=== PATIENT | male | born 1940 | race Caucasian/White ===

== ENCOUNTER 2018-08-10 13:15 | Observation (INO) | payer BC, MEDICARE ==
[2018-08-10] MEDS ORDERED: LORazepam 2 MG/ML DISP.SYRIN IV ONE (13:45)
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
[2018-08-10 13:59] LABS: Hematocrit 45.1 % (42.0-52.0); Mean Cell Volume 94.9 fl (78-100); Mean Corpuscular Hemoglobin 31.6 pg (27-31); Mean Corpuscular Hgb Conc 33.3 g/dl (32-36); Neutrophil # 7.1 K/mm3 (1.3-6.0); Neutrophil % 77.5 % (42-75.0); Platelet Count 248 K/mm3 (150-450); Red Blood Count 4.75 M/mm3 (4.7-6.0); Red Cell Distribution Width 13.4 % (11.5-14.0); White Blood Count 9.1 K/mm3 (4.0-10.5)
[2018-08-10 14:09] LABS: Albumin * 3.6 gm/dl (3.4-5.0); Anion Gap 10.1 mmol/L (6.8-13.8); BUN/Creatinine Ratio 13.4 (9.0-21.6); Bilirubin, Total 0.6 mg/dL (0.0-1.1); Ca. Corrected For Albumin 9.5 mg/dL (8.4-10.2); Calcium * 9.5 mg/dL (7.9-10.9); Carbon Dioxide 28.5 mmol/L (24-32.6); Potassium 4.6 mmol/L (3.4-4.6); Total Protein 7.9 gm/dL (6.2-8.2)
[2018-08-10 16:25] LABS: Partial Thrombolplastin Time 24.7 Seconds (24-32)
[2018-08-10] MEDS ORDERED: ACETAMINOPHEN 325 MG TABLET PO ONE (16:41)
[2018-08-10] MEDS ORDERED: ACETAMINOPHEN 500 MG TABLET PO PRN (17:01)
[2018-08-10] MEDS ORDERED: ONDANSETRON HCL/PF 2 MG/ML VIAL IV PRN (17:01)
--- NOTE | 2018-08-10 17:39 | HP ---
Chief Complaint - Chief Complaint Date of Service: 08/10/18 Time of Service: 17:29 History of Present Illness: 78-year-old male with past medical history of hypertension and BPH was brought to the ER due to right flank pain especially with cough sneezing or m ovement of one day duration. Patient endured a fall when he slipped on ice yesterday and fell on his back and hit his head, he denies loss of consciousness and reports being able to get up on his own. After the fall patient went home and thought he was okay but this morning the pain in his right flank worsened and concerned that concerned him enough to come to the ER. Abdominal CT revealed fractures of eighth ninth 10th and 11th ribs on the right side and head CT revealed a subdural hemorrhage with no mass-effect or evidence of active bleeding. Labs are negative for any significant findings. Medical History (Last Updated 08/10/18 @ 13:25 by Dank Callaway RN) GERD (gastroesophageal reflux disease) Social History: Preferred Language Polish Abuse History No History of abuse Psych History No pertinent hx No Social History Section defined Peds Patient Hx - Developmental: No Pertinent Hx Peds Patient Hx - Medical: No Pertinent Hx Peds Patient Hx - Cardiac/Respiratory: No Pertinent Hx Peds Patient Hx - Surgical: No Surgical History Patient History - Cancer: No Hx of Cancer Review Of Systems (GEN) - Review of Systems Generalized/Overall Review: Present: No Symptoms Reported EENTM: Present: No Symptoms Reported Respiratory: Present: No Symptoms Reported Cardiac: Present: No Symptoms Reported Abdominal: Present: No Symptoms Reported Genitourinary: Present: No Symptoms Reported Musculoskeletal: Present: Back Pain, Muscle Pain, Other - Right flank pain Neurological: Present: No Symptoms Reported Skin: Present: No Symptoms Reported Endocrine: Present: No Symptoms Reported Misc: All systems neg except as marked Immunizations: IMMUNIZATION HX Immunizations Up to Date Yes History of Influenza Vaccine Yes Hx Pneumococcal Vaccination Yes Allergies/Adverse Reactions: Allergies Allergy/AdvReac Type Severity Reaction Status Date / Time honey Allergy Verified 08/10/18 13:24 Home Medications: HOME MEDICATIONS Albuterol Sulfate [Proair Hfa] 1 - 2 puff IH Q4H PRN #1 inhaler 10/17/15 [Last Taken Unknown] Aspirin [Aspirin EC] 81 mg PO DAILY 10/17/15 [Last Taken Unknown] Hydrochlorothiazide [Hydrodiuril] 12.5 mg PO DAILY 10/17/15 [Last Taken Unknown] Multivitamin [Poly-Vitamin] 1 each PO DAILY 10/17/15 [Last Taken Unknown] Omeprazole [Prilosec] 40 mg PO DAILY 10/17/15 [Last Taken Unknown] Ramipril 10 mg PO DAILY 10/17/15 [Last Taken Unknown] Tamsulosin HCl [Flomax] 0.4 mg PO DAILY 10/17/15 [Last Taken Unknown] Ondansetron [Zofran Odt] 4 mg PO Q6H PRN #20 tab 11/05/15 [Last Taken Unknown] Exam - Exam Vital Signs: Vital Signs - Last Taken Temp 37.1 C 08/10/18 13:15 Pulse 98 08/10/18 13:15 Resp 14 08/10/18 13:15 BP 167/117 H 08/10/18 13:15 Pulse Ox 95 08/10/18 13:15 Constitutional: Present: Alert, Oriented x3, Cooperative, Well developed, Well nourished, No distress ENT Exam: Present: normal ENT inspection, hearing grossly normal, pharynx normal, TMs normal Eye Exam: bilateral eye: normal inspection, PERRL, EOMI Neck: Present: non-tender, full range of motion, supple, normal inspection, trachea midline Back Exam: Present: vertebral tenderness, other - Right flank tender Breasts: Present: Exam deferred Respiratory: Present: chest non-tender Cardiovascular/Chest: Present: normal peripheral pulses, regular rate, rhythm, no chest tenderness, no edema, no gallop, no JVD, no murmur Peripheral Pulses: carotid (R): 3+, carotid (L): 3+, femoral (R): 3+, femoral (L): 3+, dorsalis-pedis (R): 3+, dorsalis-pedis (L): 3+ Abdomen: Present: Normal bowel sounds, soft, tender /Rectal: Present: Exam deferred Extremity: Present: normal range of motion, non-tender, normal inspection, no pedal edema, no calf tenderness, normal capillary refill, pelvis stable Skin Exam: Present: normal color, warm/dry, no cyanosis Lymphatic: Present: no adenopathy Neurologic: Present: manager balance II-XII nml as tested, normal cerebellar test, no motor/sensory deficits, alert, normal mood/affect, oriented x 3 Appearance: Present: appropriate appearance, appropriate insight, neat, no memory impairment Eye contact: Present: cooperative, good eye contact, normal speech Thoughts: Present: normal thought pattern, no apparent hallucination, auditory hallucinations Diagnostic Studies: Abnormal Lab Results 08/10/18 08/10/18 Range/Units 13:50 13:50 MCH 31.6 H (27-31) pg Immature Gran # (Auto) 0.04 H (0.000-0.0310) K/mm3 Neutrophils % 77.5 H (42-75.0) % Lymphocytes % 12.2 L (20-51) % Neutrophils # 7.1 H (1.3-6.0) K/mm3 Lymphocytes # 1.11 L (1.5-3.5) k/mm3 Creatinine 1.42 H (0.4-1.4) mg/dL Est GFR (Non-Af Amer) 51 L (60-130) mL/min Random Glucose 121 H (70-110) mg/dL Laboratory Results WBC 9.1 K/mm3 (4.0-10.5) 08/10/18 13:50 RBC 4.75 M/mm3 (4.7-6.0) 08/10/18 13:50 Hgb 15.0 gm/dL (13.5-18.0) 08/10/18 13:50 Hct 45.1 % (42.0-52.0) 08/10/18 13:50 MCV 94.9 fl (78-100) 08/10/18 13:50 MCH 31.6 pg (27-31) H 08/10/18 13:50 MCHC 33.3 g/dl (32-36) 08/10/18 13:50 RDW 13.4 % (11.5-14.0) 08/10/18 13:50 Plt Count 248 K/mm3 (150-450) 08/10/18 13:50 MPV 10.0 fl (8-11.3) 08/10/18 13:50 Immature Gran % (Auto) 0.40 % (0.001-0.429) 08/10/18 13:50 Immature Gran # (Auto) 0.04 K/mm3 (0.000-0.0310) H 08/10/18 13:50 Neutrophils % 77.5 % (42-75.0) H 08/10/18 13:50 Lymphocytes % 12.2 % (20-51) L 08/10/18 13:50 Monocytes % 8.3 % (0.0-9) 08/10/18 13:50 Eosinophils % 1.1 % (0.0-3.0) 08/10/18 13:50 Basophils % 0.5 % (0.0-1.0) 08/10/18 13:50 Nucleated RBC % 0.0 k/mm3 (0-1) 08/10/18 13:50 Neutrophils # 7.1 K/mm3 (1.3-6.0) H 08/10/18 13:50 Lymphocytes # 1.11 k/mm3 (1.5-3.5) L 08/10/18 13:50 Monocytes # 0.8 k/mm3 (0.0-1.0) 08/10/18 13:50 Eosinophils # 0.1 k/mm3 (0.0-0.7) 08/10/18 13:50 Absolute Basophils 0.1 k/mm3 (0.0-0.1) 08/10/18 13:50 PT 10.0 Seconds (9.0-11.0) 08/10/18 13:50 INR (Anticoag Therapy) 1.00 INR (0.90-1.10) 08/10/18 13:50 PTT ([place]) 24.7 Seconds (24-32) 08/10/18 13:50 Sodium 137 mmol/L (132-142) 08/10/18 13:50 Plasma Sodium 137 mmol/L (130-142) 08/10/18 13:50 Potassium 4.6 mmol/L (3.4-4.6) 08/10/18 13:50 Chloride 103 mmol/L (97-106) 08/10/18 13:50 Carbon Dioxide 28.5 mmol/L (24-32.6) 08/10/18 13:50 Anion Gap 10.1 mmol/L (6.8-13.8) 08/10/18 13:50 BUN 19 mg/dL (6-23) 08/10/18 13:50 Creatinine 1.42 mg/dL (0.4-1.4) H 08/10/18 13:50 Est GFR (Non-Af Amer) 51 mL/min (60-130) L 08/10/18 13:50 BUN/Creatinine Ratio 13.4 (9.0-21.6) 08/10/18 13:50 Random Glucose 121 mg/dL (70-110) H 08/10/18 13:50 Calcium 9.5 mg/dL (7.9-10.9) 08/10/18 13:50 Calcium Adj for Albumin 9.5 mg/dL (8.4-10.2) 08/10/18 13:50 Total Bilirubin 0.6 mg/dL (0.0-1.1) 08/10/18 13:50 AST 18 U/L (0-48) 08/10/18 13:50 ALT 25 U/L (19-67) 08/10/18 13:50 Alkaline Phosphatase 93 U/L (50-170) 08/10/18 13:50 Total Protein 7.9 gm/dL (6.2-8.2) 08/10/18 13:50 Albumin 3.6 gm/dl (3.4-5.0) 08/10/18 13:50 Assessment/Plan - Narrative Narrative: After evaluating the patient and the medical record decision to admit to o utpatient observation was taken to monitor the patient for any neurological deficits or recurrence of brain bleed. Clinically patient appears to be stable he denies excruciating pain but was administered a mild analgesic. Repeat CT was ordered for tomorrow morning to reevaluate subdural hemorrhage. We will monitor him closely. - Assessment/Plan (1) Ribs, multiple fractures Problem: Acute Qualifiers: Encounter type: initial encounter (2) Subdural hemorrhage Problem: Acute (3) Fall Problem: Acute (4) Head injury due to trauma Problem: Acute
[2018-08-10 18:17] LABS: Urine Bilirubin Negative (NEGATIVE); Urine Ketone Negative (NEGATIVE); Urine Nitrite Negative (NEGATIVE); Urine Protein Negative (NEGATIVE); Urine Urobilinogen Normal (NORMAL); Urine pH 5.5 pH (5.0-7.0)
[2018-08-10 18:33] LABS: Urine Appearance Clear (CLEAR); Urine Bacteria TRACE; Urine Blood 5 /ul (NEGATIVE); Urine Color Dark Yellow; Urine RBC None Seen /hpf (0-5); Urine WBC None Seen /hpf (0-5)
[2018-08-10] MEDS: RAMIPRIL 2.5 MG CAPSULE PO SCH (20:22)
[2018-08-11] MEDS ORDERED: LORazepam 2 MG/ML DISP.SYRIN IV ONE (07:10)
[2018-08-11] MEDS ORDERED: amLODIPine BESYLATE 10 MG TABLET PO ONE (07:11)
[2018-08-11] MEDS ORDERED: LORazepam 2 MG/ML DISP.SYRIN IV STA (07:14)
[2018-08-11] MEDS: RAMIPRIL 2.5 MG CAPSULE PO SCH (08:19)
[2018-08-11] MEDS ORDERED: PANTOPRAZOLE SODIUM 40 MG TABLET.EC PO SCH (09:00)
[2018-08-11] MEDS ORDERED: OMEPRAZOLE 20 MG CAPSULE.SA PO SCH (09:00)
[2018-08-11] MEDS ORDERED: TAMSULOSIN HCL 0.4 MG CAP.SR.24H PO SCH ×2 (09:00→19:00)
[2018-08-11] MEDS ORDERED: MULTIVITAMIN/IRON/FOLIC ACID 1 TAB TABLET PO SCH (09:00)
--- NOTE | 2018-08-11 11:36 | DS ---
(1) Ribs, multiple fractures Problem: Acute Qualifiers: Encounter type: initial encounter (2) Subdural hemorrhage Problem: Acute (3) Fall Problem: Acute (4) Head injury due to trauma Problem: Acute Description of Stay: 78-year-old male admitted for subdural hemorrhage secondary to a fall and mildly displaced fractures of multiple ribs was evaluated at bedside and was found to be afebrile and in no acute distress. Patient had been admitted to outpatient observation for a subdural hemorrhage detected on head CT and was scheduled to undergo a follow-up CT this morning. The CT was successfully carried out and results demonstrate that the hemorrhage is unchanged there are no mass-effects or any concerning new findings. Patient is not presenting any neurological deficits and reports feeling better. He says that his pain is adequately controlled with Tylenol. This morning while being assisted out of bed with the nurse nurse noted that the patient was a little bit wobbly and had poor balance, therefore before discharging him evaluation by physical therapy was requested to see if he needs any at home services. Procedures Performed: none Results and Findings: Lab Pending Results 08/10/18 13:50: WBC 9.1, RBC 4.75, Hgb 15.0, Hct 45.1, MCV 94.9, MCH 31.6 H, MCHC 33.3, RDW 13.4, Plt Count 248, MPV 10.0, Immature Gran % (Auto) 0.40, Immature Gran # (Auto) 0.04 H, Neutrophils % 77.5 H, Lymphocytes % 12.2 L, Monocytes % 8.3, Eosinophils % 1.1, Basophils % 0.5, Nucleated RBC % 0.0, Neutrophils # 7.1 H, Lymphocytes # 1.11 L, Monocytes # 0.8, Eosinophils # 0.1, Absolute Basophils 0.1 08/10/18 13:50: Sodium 137, Plasma Sodium 137, Potassium 4.6, Chloride 103, Carbon Dioxide 28.5, Anion Gap 10.1, BUN 19, Creatinine 1.42 H, Est GFR (Non-Af Amer) 51 L, BUN/Creatinine Ratio 13.4, Random Glucose 121 H, Calcium 9.5, Calcium Adj for Albumin 9.5, Total Bilirubin 0.6, AST 18, ALT 25, Alkaline Phosphatase 93, Total Protein 7.9, Albumin 3.6 08/10/18 13:50: PT 10.0, INR (Anticoag Therapy) 1.00, PTT ([place]) 24.7 08/10/18 18:10: Urine Color Dark yellow, Urine Appearance Clear, Urine pH 5.5, Ur Specific [place] 1.020, Urine Protein Negative, Urine Glucose (UA) Negative, Urine Ketones Negative, Urine Blood 5 H, Urine Nitrate Negative, Urine Bilirubin Negative, Urine Urobilinogen Normal, Ur Leukocyte Esterase Negative, Urine RBC None seen, Urine WBC None seen, Ur Epithelial Cells None seen, Urine Bacteria Trace, Urine Culture Comments No culture indicated Discharge Location: Home Disposition: Home self-care Condition: Good Face to Face Encounter completed per [facility] Guidelines: No Discharge Activity: Activity as tolerated Discharge Diet: General/regular food Referrals: Varghese Vance MD [Primary Care Provider] - Additional Patient Instructions (free text): Please discuss doing outpatient PT with Dr Vance at your follow up appointment. F/U with Dr Vance next week. Prescriptions (Any new or edited meds): Acetaminophen 1,000 mg PO Q6H PRN #60 tablet PRN Reason: Pain Complete Home Medications List: Complete Home Medication List: Multivitamin [Poly-Vitamin] 1 each PO DAILY 10/17/15 Omeprazole [Prilosec] 40 mg PO DAILY 10/17/15 Ramipril 10 mg PO DAILY 10/17/15 Tamsulosin HCl [Flomax] 0.4 mg PO DAILY 10/17/15 Acetaminophen 1,000 mg PO Q6H PRN #60 tablet 08/11/18
[2018-08-11 12:52] VITALS: BP 140/89
== END 2018-08-11 13:26 | disposition home or self-care (01) ==
LOC: ER 13:15 → MS 13:15
PROVIDERS: ADMIT Family Medicine; ATTEND Family Medicine
CPT/HCPCS: 36415; 70450; 74177; 80053; 81001; 85025; 85610; 85730; 96374; 96376; 97161; 99284; G0378; G8978; G8979; G8980